=== PATIENT | male | born 1985 | race Caucasian/White ===

== ENCOUNTER 2018-07-23 14:23 | Inpatient (IN) | payer BC, OTHER ==
[~2018-07-23] VITALS: Ht 182.9 cm; Wt 79.4 kg
--- NOTE | 2018-07-23 15:20 | NUR ---
PRE ASSESSMENT: A 33 yr old male in intake presents with flushed face and bloodshot eyes. He is odorous of ETOH. His gait is steady. He reports allergy to shellfish. he denies Sz. Hx. He denies S/I and H/I. He reports drinking 2 bottles (1500 ml) of wine daily in this pattern since February. He drank 4 (30 ml) shots on plane today. Last drank about noon today [place] time. He did 5 days in detox back in November and left AMA and did IOP and stayed sober for 2.5 months. He brought Prilosec OTC and contact solution. Will assess on unit.` Addendum: 07/23/18 at 1637 by HUE STANTON RN CORRECTION : Pt brought Carli not Prilosec to facility. He does not take Prilosec . He takes Carli for allergies to Pollen.
[2018-07-23] MEDS ORDERED: LORAZEPAM 2 MG/1 ML VIAL IM PRN (15:45)
[2018-07-23] MEDS: FOLIC ACID 1 MG TABLET PO SCH (15:45)
[2018-07-23] MEDS ORDERED: MAGNESIUM HYDROXIDE 30 ML LIQUID UDC PO PRN (15:45)
[2018-07-23] MEDS ORDERED: LORAZEPAM 1 MG TABLET PO PRN (15:45)
[2018-07-23] MEDS ORDERED: THIAMINE HCL 200 MG/2 ML VIAL IM ONE (15:45)
[2018-07-23] MEDS: MULTIVITAMINS,THERAPEUTIC TABLET PO SCH (15:45)
[2018-07-23] MEDS ORDERED: ONDANSETRON 4 MG/2 ML VIAL IM PRN (15:45)
[2018-07-23] MEDS: THIAMINE HCL 100 MG TABLET PO SCH (15:45)
[2018-07-23] MEDS ORDERED: ONDANSETRON ODT 4 MG TAB.RAPDIS SL PRN (15:45)
[2018-07-23] MEDS ORDERED: LOPERAMIDE HCL 2 MG CAPSULE PO PRN ×2 (15:45)
[2018-07-23] MEDS ORDERED: MIRALAX 17 GM POWD.PACK PO PRN (15:45)
[2018-07-23 16:10] LABS: *AMPHETAMINE, URINE NEGATIVE (NEGATIVE); *BARBITURATE, URINE NEGATIVE (NEGATIVE); *CANNABINOID, URINE NEGATIVE (NEGATIVE); *COCCAINE, URINE NEGATIVE (NEGATIVE); *OPIATE, URINE NEGATIVE (NEGATIVE); *PHENCYCLIDINE SCREEN,URINE NEGATIVE (NEGATIVE)
[2018-07-23] MEDS: IBUPROFEN 600 MG TABLET PO PRN (16:12)
[2018-07-23] MEDS ORDERED: AZITHROMYCIN 250 MG TABLET PO ONE (16:45)
[2018-07-23] MEDS ORDERED: FEXO180T94 PO (16:45)
[2018-07-23] MEDS ORDERED: CEFTRIAXONE 1 G VIAL IM SCH (16:45)
[2018-07-23 16:48] LABS: BASOPHILS % (AUTO) 0.9 % (0.0-2.0); EOSINOPHILS % (AUTO) 0.4 % (0.0-7.0); HEMATOCRIT 41.6 % (36.7-47.1); HEMOGLOBIN 14.6 g/dL (12.5-16.3); LYMPHOCYTES # (AUTO) 1.6 K/uL (20.0-40.0); LYMPHOCYTES % (AUTO) 29.9 % (20.5-51.5); MEAN CORPUSCULAR HEMOGLOBIN 32.9 uug (23.8-33.4); MEAN CORPUSCULAR HGB CONC 35 g/dL (32.5-36.3); MEAN CORPUSCULAR VOLUME 93.5 fL (73.0-96.2); MONOCYTES # (AUTO) 0.4 K/uL (2.0-10.0); MONOCYTES % (AUTO) 7.8 % (0.0-11.0); NEUTROPHILS # (AUTO) 3.3 K/uL (1.8-8.9); PLATELET COUNT (AUTO) 142 K/uL (152-348); RED BLOOD CELL COUNT(AUTO) 4.44 MIL/uL (4.06-5.63); WHITE BLOOD COUNT (AUTO) 5.4 K/uL (3.6-10.2)
--- NOTE | 2018-07-23 17:01 | NUR ---
ADMISSION: Pt admitted to [facility] for medically supervised withdrawal of ETOH. He presents with flushed face and is odorous of Alcohol. He is mildly intoxicated. He states he drank on the plane ride here today. He states he cannot stop on his own as he gets too shaky with nausea,anxiety and develops chest pain when he tries to stop. He states he has been through a recent break up of a long relationship and legal issues in the recent past which has added to his reasons to drink. He was at [facility] for 5 days in November 2017 and left AMA. He reports going to IOP ( [facility])) after detox and staying sober for 2.5 months which was his longest period of sobriety. He reports the inability to cope with feelings and emotional discomfort led to his relapses in February 2018. He states he moved in with his partner in a new town in [facility]. and he felt very lonely. He reports loneliness was also a big part of his relapsing. He states he is sick and tired of living like this and he has a new niece and his sister has a baby on the way which motivates him to want to stop drinking and states I cannot do it on my own. BP 130/91 P 110 R 18 O2sat 98% ETOH USE : He reports drinking 2 bottles (1500 ml) of wine daily in this pattern since February. He drank 4 (30 ml) shots on plane today. Last drank about noon today [place]. He did 5 days in detox back in November and left AMA and did IOP and stayed sober for 2.5 months. He states he occasionally blacks out when he drinks too much and has a bruise on his R lower left from falling when drunk. He was on a 5150 hold in May when he was asked by a police radio dispatcher if he wanted to hurt himself. He replied "No" but stated he wouldn't mind going to sleep and not waking up. he was then put on a 72 hour hold. He reports seasonal allergies and brought Carli with him to facility. He denies Sz. hx. He reports PCP is Dr. Abi Dimas in [place]. he lives with his parents now and does real estate for work. He presents with sad mood and congruent affect,. He is reporting chest pain on unit 4/10 and states it is a dull pain. MD notified EKG ordered and normal results noted. Pt was given IM Thiamine as ordered and PRN Motrin for pain. He states he just wants to lay down. Md assessed Pt. Oriented Pt. to staff and unit. He states he would just like to lay down. Encouraged increased fluids. Will provide safe and supportive environment.
[2018-07-23 17:02] LABS: BILIRUBIN,TOTAL 0.4 mg/dL (0.2-1.0); MAGNESIUM 1.9 mg/dL (1.8-2.4); POTASSIUM 3.7 mmol/L (3.5-5.1); TOTAL PROTEIN, SERUM 7.3 g/dL (6.4-8.2)
[2018-07-23 17:09] LABS: THYROID STIMULATING HORMONE 1.563 mIU/mL (0.358-3.740)
--- NOTE | 2018-07-23 17:32 | NUR ---
Pt states the Motrin was effective and he denies chest pain at this time. pain 0/10 on scale.
[2018-07-23] MEDS: LORAZEPAM 1 MG TABLET PO PRN (18:18)
--- NOTE | 2018-07-23 18:20 | NUR ---
LANIEWA 13 Pt c/o mild nausea, anxiety,restlessness and feels like he is starting to crawl out of his skin. PRN Ativan 1 mg PO PRN given to manage s/s of w/d. Will monitor effectiveness of med.
--- NOTE | 2018-07-23 18:55 | NUR ---
Pt states Ativan was effective. CIWA 10.
--- NOTE | 2018-07-23 18:56 | NUR ---
END OF SHIFT: Pt newly admitted and resting in bed at this time. Bed locked and low. Call cisneros in reach. Will pass shift report to oncoming night nurse.
--- NOTE | 2018-07-23 19:30 | NUR ---
START OF SHIFT Pt is a 33 y/o male admitted today for medically supervised withdrawal from ETOH.Pt received sleeping in bed in his room;breathing is even and non labored,no s/s of distress noted.Last CIWA was 10. PRN Ativan 1 mg po was given and was effective.Pt has hx of anxiety and depression and is on PRN medications. All safety measures in place. Bed is locked in the lowest position, side rails up x2, and call light within reach. Will continue to monitor for w/d symptoms when awake.
[2018-07-23 20:00] VITALS: BP 128/85
--- NOTE | 2018-07-23 20:00 | NUR ---
CIWA DEFERRED Pt is sleeping comfortable in bed,no s/s of distress noted.CIWA deferred d/t Pt being asleep.
[2018-07-24] VITALS: BP 138/95
--- NOTE | 2018-07-24 | NUR ---
CIWA = 11 Pt is feeling anxious,c/o hot and cold sweats,headache,body ache,mild nausea with no vomiting.Will medicate and monitor for safety.
[2018-07-24] MEDS: IBUPROFEN 600 MG TABLET PO PRN ×3 (00:19→20:55)
[2018-07-24] MEDS: LORAZEPAM 1 MG TABLET PO PRN (00:19)
[2018-07-24] MEDS: CLONIDINE HCL 0.1 MG TABLET PO PRN (00:20)
--- NOTE | 2018-07-24 00:20 | NUR ---
PRN MEDS PRN ATIVAN 1 MG PO GIVEN FOR CIWA 11,MOTRIN 600 MG PO GIVEN FOR ACHES AND PAIN 5/10 AND CLONIDINE 0.1 MG PO GIVEN FOR HOT AND COLD FLASHES.WILL MONITOR FOR EFFECTIVENESS.
--- NOTE | 2018-07-24 01:20 | NUR ---
PRN F/U PRN meds ar effective in controlling symptoms; pt is resting in bed with eyes closed,no s/s of distress noted,will continue to monitor.
[2018-07-24 04:00] VITALS: BP 124/83
--- NOTE | 2018-07-24 04:00 | NUR ---
CIWA DEFERRED Pt is sleeping comfortable in bed,no s/s of distress noted.CIWA deferred d/t Pt being asleep.
--- NOTE | 2018-07-24 06:56 | NUR ---
END OF SHIFT Pt is a 33 y/o male admitted for medically supervised withdrawal from ETOH.Pt was received sleeping in bed in his room;breathing is even and non labored,no s/s of distress noted.He slept most of night.Last CIWA was 11 at midnight. PRN Ativan 1 mg po, Motrin 600 mg po and Clonidine 0.1 mg po were given and were effective.Pt slept 10 hours,fluid intake was 1151 ml, voided x 2, no BM reported. All safety measures in place. Bed is locked in the lowest position, side rails up x2, and call light within reach. Will continue to monitor.
--- NOTE | 2018-07-24 08:00 | NUR ---
start of shift note: [facility]/dependence. pt at this time is awake and asking to shower. pt verbalized I'm on [place] time so that's why Im up so early. pt appears anxious and flushed. pt with complaints of numbness from left arm to chest area, verbalizes it not pain but it happens when he is in withdrawal and its actually getting better. will continue to monitor pt for any changes
[2018-07-24] MEDS ORDERED: TUBERCULIN,PURIF.PROT.DERIV. 5 TU/0.1 ML TEST ID ONE (09:00)
[2018-07-24] MEDS: MULTIVITAMINS,THERAPEUTIC TABLET PO SCH (09:33)
[2018-07-24] MEDS: THIAMINE HCL 100 MG TABLET PO SCH (09:33)
[2018-07-24] MEDS: FOLIC ACID 1 MG TABLET PO SCH (09:33)
--- NOTE | 2018-07-24 09:34 | NUR ---
PRN ADMINISTRATION: pt with ciwa of 16 prn 2 mg ativan was administered with motrin for headache pain 06/23.
[2018-07-24 11:04] VITALS: BP 126/88
[2018-07-24] MEDS ORDERED: 4 DAY TAPER OF LORAZEPAM -SERENITY PROTOCOL PO PRN (11:15)
--- NOTE | 2018-07-24 12:49 | NUR ---
Therapist prompted client to attend group therapy.
--- NOTE | 2018-07-24 13:00 | NUR ---
ciwa assessment:13 pt is flushed and tremulous with complaints of a mild headache
[2018-07-24 13:26] VITALS: BP 139/96
[2018-07-24] MEDS: LORAZEPAM 1 MG TABLET PO SCH ×2 (14:26→20:55)
[2018-07-24 16:58] VITALS: BP 137/95
--- NOTE | 2018-07-24 18:49 | NUR ---
end of shift note: pt is admitted to [facility] for ETOH withdrawal/dependence, pt last ciwa is 13, pt is tolerating ativan taper well without a/r to taper pt refused TB skin test. Dr. Wu ordered a 4 day ativan taper. pt appears flushed and midly anxious. pt is polite and received PRN motrin for a headache. will endorse pt to assistant shift supervisor nurse.
--- NOTE | 2018-07-24 19:30 | NUR ---
START OF SHIFT Pt is a 33 y/o male admitted for medically supervised withdrawal from ETOH.Pt received i in his room; A/A/O X 4; appears flushed and mildly anxious,c/o mild headache.Last CIWA was 13.Pt started on Ativan taper and is tolerating well. PRN Ativan 2 mg po and Motrin were given and were effective.Pt has hx of anxiety and depression . All safety measures in place. Bed is locked in the lowest position, side rails up x2, and call light within reach. Will continue to monitor .
[2018-07-24 20:00] VITALS: BP 122/85
[2018-07-24] MEDS: diphenhydrAMINE 50 MG CAPSULE PO PRN (20:55)
--- NOTE | 2018-07-24 20:55 | NUR ---
PRN MEDS Pt medicated with routine Ativan 2 mg PO.Pt is also c/o headache 5/10 and insomnia. PRN meds Motrin and Benadryl given as ordered for c/o headache and insomnia; will continue to monitor.
--- NOTE | 2018-07-24 22:00 | NUR ---
PRN F/U PRN meds are effective in controlling symptoms; Pt is resting in bed with eyes closed,no s/s of distress noted,will continue to monitor.
--- NOTE | 2018-07-25 | NUR ---
WENDI DEFERRED D/T PT BEING ASLEEP.
[2018-07-25 04:00] VITALS: BP 124/88
--- NOTE | 2018-07-25 04:00 | NUR ---
CIWA DEFERRED Pt is sleeping comfortable in bed,no s/s of distress noted.CIWA deferred d/t Pt being asleep.
--- NOTE | 2018-07-25 06:48 | NUR ---
END OF SHIFT Pt is a 33 y/o male admitted for medically supervised withdrawal from ETOH.Pt is a/o x 4.He slept most of night.Last CIWA was 9 at 1999.Pt stated that Ativan is helping him with the withdrawal symptoms. PRN Motrin 600 mg po and Benadryl 50 mg po were given and were effective.Pt slept 8 hours,fluid intake was 500 ml, voided x 2, no BM reported. All safety measures in place. Bed is locked in the lowest position, side rails up x2, and call light within reach. Will continue to monitor.
[2018-07-25 07:06] LABS: HEPATITIS B SURFACE AG Negative (Negative)
[2018-07-25 08:00] VITALS: BP 133/86
--- NOTE | 2018-07-25 08:08 | NUR ---
START OF SHIFT: Received Pt A/O X 4. He presents with anxious mood and congruent affect. He reports anxiety, sweats, restlessness,mild depression and H/A 5/10 on pain scale. CIWA 11. Ativan taper in progress to manage s/s of w/d. PRN Motrin given for H/A. Encouraged increased fluids to assist in facilitating detox process.Encouraged group attendance to improve coping skills.Will continue to monitor and manage s/s of w/d.
[2018-07-25] MEDS: LORAZEPAM 1 MG TABLET PO SCH ×4 (08:55→20:52)
[2018-07-25] MEDS: THIAMINE HCL 100 MG TABLET PO SCH (08:55)
[2018-07-25] MEDS: IBUPROFEN 600 MG TABLET PO PRN (08:55)
[2018-07-25] MEDS: FOLIC ACID 1 MG TABLET PO SCH (08:55)
[2018-07-25] MEDS: MULTIVITAMINS,THERAPEUTIC TABLET PO SCH (08:55)
--- NOTE | 2018-07-25 09:10 | NUR ---
PRN Motrin effective as Pt reports H/A 2/10 on scale.
--- NOTE | 2018-07-25 10:23 | NUR ---
Therapist prompted client to attend group therapy.
[2018-07-25 12:00] VITALS: BP 154/100
--- NOTE | 2018-07-25 12:00 | NUR ---
CIWA 10 He presents anxious with flushed face,he reports intermittent sweats. he states he feels anxious and restless.
[2018-07-25] MEDS: CLONIDINE HCL 0.1 MG TABLET PO PRN ×2 (12:28→20:52)
--- NOTE | 2018-07-25 12:44 | NUR ---
PRN Clonidine 0.1 mg PO given for BP 154/100 P 76. He is asymptomatic. Will monitor effectiveness of PRN med.
[2018-07-25 13:00] VITALS: BP 131/88
--- NOTE | 2018-07-25 13:44 | NUR ---
PRN Clonidine effective. BP 131/88 P 81 Will continue to monitor and offer support.
[2018-07-25 16:00] VITALS: BP 137/94
--- NOTE | 2018-07-25 18:35 | NUR ---
END OF SHIFT: Pt continues on Ativan taper to manage s/s of w/d which include flushed face,anxiety,restlessness ,intermittent sweats, H/A and irritability. Last CIWA 9 . PRN Motrin given his am for H/A and effective. PRN Clonidine given this afternoon for slightly elevated BP which was also effective. He was compliant with group attendance and increased fluids as encouraged. [facility].
[2018-07-25 20:00] VITALS: BP 142/98
--- NOTE | 2018-07-25 20:00 | NUR ---
Start of Shift Note Received a 33 y/o male px, admitted for medically supervised withdrawal from ETOH. Px is placed on 4 day Ativan taper started yesterday, 07/25/2018. Last reported CIWA 9 by AM shift nurse. During the rounds at 2000, px is awake inside his room standing. He appears anxious and depressed. He has flushed face. Px states that his anxiety is 8/10. No more complaints made. Bed on lowest position, bed rails up 2x and call light within reach. Well continue to monitor.
--- NOTE | 2018-07-25 20:00 | NUR ---
CIWA 10 Upon assessment, He appears anxious and depressed. He has flushed face. Px states that his anxiety is 8/10. will continue to monitor
--- NOTE | 2018-07-25 20:52 | NUR ---
PRN Clonidine Px received Clonidine 0.1 mg PO for anxiety. To reassess after an hour
--- NOTE | 2018-07-25 21:52 | NUR ---
PRN Clonidine reassessment Px also received Valium an hour ago. Px stated that his anxiety improved a little.
--- NOTE | 2018-07-25 21:52 | NUR ---
Ativan Reassessment CIWA 9. Px stated that his anxiety improved just a bit. He wanted to get pill to help him sleep.
[2018-07-25] MEDS: diphenhydrAMINE 50 MG CAPSULE PO PRN (21:57)
[2018-07-25] MEDS: HYDROXYZINE PAMOATE 25 MG CAPSULE PO PRN (21:57)
--- NOTE | 2018-07-25 21:57 | NUR ---
PRN medications Px received Vistaril 25 mg PO and Benadryl 50 mg PO for insomnia. will continue to monitor
--- NOTE | 2018-07-25 23:00 | NUR ---
ANDRZEJ Ruelas and Kenji Velasquez is already asleep at this moment. will continue to monitor Addendum: 07/26/18 at 0649 by PATRICIA BRADSHAW RN This is reassessment
[2018-07-26] VITALS: BP 130/79
[2018-07-26 04:00] VITALS: BP 128/77
--- NOTE | 2018-07-26 04:00 | NUR ---
CIWA deferred CIWA deferred at 0000 and 0400 due the px is asleep, to assess if the px is awake per doctor's order. will continue to monitor
--- NOTE | 2018-07-26 07:05 | NUR ---
End of Shift Note At 2051, px received Clonidine 0.1 mg PO for anxiety. It was effective given with PRN Ativan. At 2156, px received Benadryl 50 mg PO and Vistaril 25 mg PO for insomnia. They were effective. Oral intake is 800 ml, 2x, No BM. Px slept for 8 hours. Last CIWA 9. Bed on lowest position, bed rails up 2x and call light within reach. Well continue to monitor. Px endorsed to AM shift nurse.
[2018-07-26 08:00] VITALS: BP 115/77
--- NOTE | 2018-07-26 08:05 | NUR ---
START OF SHIFT: Received Pt A/O X 4. He presents with anxious mood and congruent affect. He reports anxiety, sweats, restlessness and mild depression . CIWA 7 Ativan taper in progress to manage s/s of w/d. Encouraged increased fluids to assist in facilitating detox process.Encouraged group attendance to improve coping skills.Will continue to monitor and manage s/s of w/d.
[2018-07-26] MEDS: FOLIC ACID 1 MG TABLET PO SCH (08:31)
[2018-07-26] MEDS: LORAZEPAM 1 MG TABLET PO SCH ×3 (08:31→21:07)
[2018-07-26] MEDS: THIAMINE HCL 100 MG TABLET PO SCH (08:31)
[2018-07-26] MEDS: MULTIVITAMINS,THERAPEUTIC TABLET PO SCH (08:31)
[2018-07-26 12:00] VITALS: BP 129/93
--- NOTE | 2018-07-26 12:05 | NUR ---
Noon CIWA 8 He reports anxiety ,restlessness and intermittent sweats.
--- NOTE | 2018-07-26 13:42 | NUR ---
Therapist prompted client to attend all group therapy sessions.
[2018-07-26 16:00] VITALS: BP 148/97
--- NOTE | 2018-07-26 18:23 | NUR ---
END OF SHIFT: Pt continues on Ativan taper to manage s/s of w/d which include flushed face,anxiety,restlessness and intermittent sweats. Last CIWA 8 He states the detox meds are effective. He was compliant with group attendance. He reports a good appetite. Will pass shift report to oncoming night nurse.
--- NOTE | 2018-07-26 18:23 | NUR ---
START OF SHIFT NOTE: Endorsed patient, 33 years old male, admitted for Alcohol withdrawal, continues ordered 4 day Ativan taper, which tolerated well. Withdrawal symptoms will be closely monitoring. Patient remains compliant with treatment, medications, and diet regimen. Patient is alert and oriented x4, cooperative, with stable gait, clear soft speech. Patient reports allergy to Iodine and Shellfish, is on Full Code, Regular diet, Fall and Seizures precautions. Patient denies history of seizures. Last CIWA= 8 at 1600. Throughout the day patient presented with mild withdrawal symptoms such as anxiety, agitation, irritability, nervousness, tremors that can be felt not observe, restlessness, and fatigue. No PRN medications was administered during day shift, per day shift nurse report. Patient was encouraged to fluids intake as tolerated, and to attend groups activities. Safe and calm environment provided. All needs met. Safety measures in place: Call light within reach, bed locked in lowest position, padded bed rails up bilaterally. Patient endorsed by outgoing day shift nurse. Report received. Will be monitoring closely.
[2018-07-26 20:00] VITALS: BP 133/91
--- NOTE | 2018-07-26 20:00 | NUR ---
CIWA ASSESSMENT CIWA=9 at 1999. The patient appears sad and worried. Mood anxious and flat affect. The patient presented with following withdrawal symptoms such as anxiety, agitation, depression, irritability, nervousness, barely sweating, tremors that can be felt not observe, restlessness, and fatigue. Scheduled medications will be administrated as ordered. Encouraged to intake fluids as tolerated. Safe and calm environment provided. All needs met. Safety measures: Call light within reach, bed locked in lowest position, padded bed rails up x2. Will continue to monitor closely.
[2018-07-26] MEDS: diphenhydrAMINE 50 MG CAPSULE PO PRN (21:07)
--- NOTE | 2018-07-26 21:07 | NUR ---
PRN BENADRYL 50 MG 1TABLET PO ADMINISTRATION Patient c/o insomnia and asked aid. PRN Benadryl 50 mg 1 tablet was administered as ordered with full glass of water at 2107. Patient tolerated well. Safe and calm environment provided. All needs met. Safety measures in place: Call light within reach, bed locked in lowest position, padded bed rails up bilaterally. Will continue monitoring closely.
--- NOTE | 2018-07-26 22:07 | NUR ---
PRN RE-ASSESSMENT Patient said, "I can't sleeping, please, give me something for anxiety". PRN Benadryl 50 mg PO administered for insomnia at 2106 was ineffective. Safe and calm environment provided. All needs met. Safety measures in place: Call light within reach, bed locked in lowest position, padded bed rails up bilaterally. Will be continue monitoring closely.
[2018-07-26] MEDS: HYDROXYZINE PAMOATE 25 MG CAPSULE PO PRN (22:17)
[2018-07-26] MEDS: CLONIDINE HCL 0.1 MG TABLET PO PRN (22:18)
--- NOTE | 2018-07-26 22:18 | NUR ---
PRN VISTARIL 25 MG 1 CAPSULE PO, PRN CLONIDINE 0.1 MG 1TABLET PO ADMINISTRATION Patient c/o increased anxiety, and asked aid. PRN Vistaril 25 mg 1 capsule PO administered for anxiety at 22 17, and PRN Clonidine 0.1 mg 1 tablet PO (BP 133/91) administered for agitation at 2218, as ordered with full glass of water. Patient tolerated well. Safe and calm environment provided. All needs met. Safety measures in place: Call light within reach, bed locked in lowest position, padded bed rails up bilaterally. Will continue monitoring closely.
--- NOTE | 2018-07-26 23:18 | NUR ---
PRN RE-ASSESSMENT Patient is sleeping on his side. Respirations are even and unlabored. RR: 14. PRN Vistaril 25 mg PO administered for anxiety at 2217, and PRN Clonidine 0.1 mg PO administered for agitation at 2218 were effective. Safe and calm environment provided. All needs met. Safety measures in place: Call light within reach, bed locked in lowest position, padded bed rails up bilaterally. Will continue monitoring closely.
[2018-07-27] VITALS: BP 108/76
--- NOTE | 2018-07-27 | NUR ---
CIWA ASSESSMENT CIWA=9 at 0000 The patient noted with following withdrawal symptoms such as anxiety, agitation, depression, irritability, nervousness, barely sweating, tremors, restlessness, and fatigue. Encouraged to intake fluids as tolerated. Safe and calm environment provided. All needs met. Safety measures: Call light within reach, bed locked in lowest position, padded bed rails up x2. Will continue to monitor closely.
[2018-07-27 04:00] VITALS: BP 103/73
--- NOTE | 2018-07-27 04:00 | NUR ---
CIWA ASSESSMENT CIWA=9 at 0400: Patient experienced anxiety, agitation, , nervousness, sweating, clammy skin, tremors that can be felt, not observe, restlessness, and fatigue. Encouraged to intake fluids as tolerated. Safe and calm environment provided. All needs met. Safety measures: Call light within reach, bed locked in lowest position, padded bed rails up x2. Will continue to monitor closely.
--- NOTE | 2018-07-27 07:20 | NUR ---
END OF SHIFT NOTE: Patient is alert and oriented x4, cooperative, with stable gait, clear soft speech. Patient continues and tolerated well with 4 day Ativan taper, ordered for Alcohol withdrawal. Patient remains compliant with treatment, medications, and diet regimen. CIWA= 9 at 2000, CIWA= 9 at 0000. The most recent CIWA=9 at 0400. Withdrawal symptoms was closely monitored. Patient presented with anxiety, agitation, depression, irritability, nervousness, sweating, bilateral tremors that can be felt, not observe, restlessness, and fatigue. PRN Benadryl 50 mg 1 tablet was administered for insomnia at 2106, PRN Vistaril 25 mg PO administered for anxiety at 2216, and PRN Clonidine 0.1 mg PO administered for agitation at 2217, and were effective. Patient slept for 9 hours, intake 1,500 ml, output: voided x2. Encouraged to fluids intake as tolerated. Encouraged to attend groups activities. Safe and calm environment provided. All needs met. Safety measures in place: Call light within reach, bed locked in lowest position, padded bed rails up bilaterally. Patient endorsed to day shift nurse.
--- NOTE | 2018-07-27 07:35 | NUR ---
START OF SHIFT Rcvd endorse from ongoing nurse, client is pacing in his room, he presents with flushed face, avoidant gaze, tremors, clammy skin, anxious mood, restlessness, and irritability. Client stated, "I feel exremely anxious, feel a knot on my stomach, nausea, and restless legs, that's why I have to keep moving." Last of 4 day Ativan taper, last CIWA 9 @ 0400. PRN Vistaril 25mg PO for anxiety, Clonidine 0.1mg PO for agitation, and Benadryl 50mg PO for insomnia, client slept 9 hrs. Encourage client to attend group therapy to learn skills to maintain sober. Seizure precautions in place. Call light within reach.
[2018-07-27 08:16] LABS: BASOPHILS % (AUTO) 0.6 % (0.0-2.0); EOSINOPHILS # (AUTO) 0.1 K/uL (0.0-0.7); EOSINOPHILS % (AUTO) 1.1 % (0.0-7.0); HEMATOCRIT 43.6 % (36.7-47.1); HEMOGLOBIN 15.3 g/dL (12.5-16.3); LYMPHOCYTES # (AUTO) 1.5 K/uL (20.0-40.0); LYMPHOCYTES % (AUTO) 27.3 % (20.5-51.5); MEAN CORPUSCULAR HEMOGLOBIN 33.1 uug (23.8-33.4); MEAN CORPUSCULAR HGB CONC 35 g/dL (32.5-36.3); MEAN CORPUSCULAR VOLUME 94.3 fL (73.0-96.2); MONOCYTES # (AUTO) 0.5 K/uL (2.0-10.0); MONOCYTES % (AUTO) 8.8 % (0.0-11.0); NEUTROPHILS # (AUTO) 3.5 K/uL (1.8-8.9); NEUTROPHILS % (AUTO) 62.2 % (38.5-71.5); PLATELET COUNT (AUTO) 117 K/uL (152-348); RED BLOOD CELL COUNT(AUTO) 4.62 MIL/uL (4.06-5.63); WHITE BLOOD COUNT (AUTO) 5.6 K/uL (3.6-10.2)
[2018-07-27 08:27] VITALS: BP 112/72
[2018-07-27 08:32] LABS: BILIRUBIN,TOTAL 0.7 mg/dL (0.2-1.0); CREATININE 1.1 mg/dL (0.6-1.3); POTASSIUM 4.2 mmol/L (3.5-5.1); TOTAL PROTEIN, SERUM 7.2 g/dL (6.4-8.2)
[2018-07-27] MEDS: MULTIVITAMINS,THERAPEUTIC TABLET PO SCH (09:14)
[2018-07-27] MEDS: FOLIC ACID 1 MG TABLET PO SCH (09:14)
[2018-07-27] MEDS: THIAMINE HCL 100 MG TABLET PO SCH (09:14)
[2018-07-27] MEDS: LORAZEPAM 1 MG TABLET PO SCH ×2 (09:14→20:42)
--- NOTE | 2018-07-27 09:14 | NUR ---
CIWA 14 Client is in room, sitting at the edge of bed, unable to stop moving his feet, he appears with flushed face, avoidant gaze, tremulous voice. he presents with anxious mood, flat affect, tremors, and clammy skin. Client reports nausea, stomach cramps, poor appetite, shaky,sweaty, feeling rather sad, and fatigued. Schedule Ativan 1mg PO administered. Encourage client to attend group therapy to learn skills to maintain sober. Call light within reach.
--- NOTE | 2018-07-27 10:00 | NUR ---
MD Wu notified of Plt count 117. Client denies any blood noted in urine, no bruises on body. Encourage client to notify nursing staff for ant change in condition.
[2018-07-27 12:27] VITALS: BP 120/81
--- NOTE | 2018-07-27 12:30 | NUR ---
CIWA 12 Client appears anxious and depressed, noted with flushed face. Client declines PRN medication to help manage withdrawal symptoms. Will continue to monitor. Call light within reach.
--- NOTE | 2018-07-27 12:50 | NUR ---
Therapist prompted client to attend all group therapy sessions.
--- NOTE | 2018-07-27 16:23 | NUR ---
CIWA 13 Client is back in room from group therapy, he stated, "I feel pretty anxious, those therapies get intense and emotional." Client reports nausea, chills, anxiety, agitation, and restless legs. Client decline PRN medication for anxiety at this time. Call light within reach.
[2018-07-27 16:55] VITALS: BP_SYST 123; BP_SYST 138; BP_DIAS 75; BP_DIAS 90
--- NOTE | 2018-07-27 19:09 | NUR ---
END OF SHIFT Endorse client to incoming nurse, client is in group therapy, a/o x 4. Client continues to present with anxiety, agitation, tremors, flushed face, clammy skin, difficulty concentrating, nausea, abdominal cramps, restless legs, poor appetite, headache, and fatigue. Last CIWA 13 @ 1600. Last of 4 day Ativan taper. Adequate PO fluid intake 3302mL, void x 4. Consumes 75% of meals. Call light within reach.
--- NOTE | 2018-07-27 19:09 | NUR ---
START OF SHIFT NOTE Endorsed patient is alert and oriented x4: place, time person, and situation, presented for alcohol withdrawal, tolerated well with ordered 4 day Ativan taper, today is last day. Patient remains compliant with treatment, medications, and diet regime. Patient is cooperative with staff and peers, attended group activities, increased ADLs. VSWNL. Last CIWA=13 at 1623. Patient experienced moderate withdrawal symptoms such as anxiety, agitation, nervousness, mild nausea, w/o vomiting, not visible bilateral tremors that can be felt, sweating, restlessness, and fatigue. Withdrawal symptoms will be closely monitoring. No PRN medications administered during day shift, per day shift nurse report. Encouraged to fluids intake as tolerated. Encouraged to attend group activities. Safe and calm environment provided. All needs met. Safety measures in place: Call light within reach, bed is locked in lowest position, padded bed rails up x2. Report received from outgoing day shift nurse. Will continue to monitor closely.
[2018-07-27 20:00] VITALS: BP 129/93
--- NOTE | 2018-07-27 20:00 | NUR ---
CIWA ASSESSMENT CIWA=11 at 2000. Patient experienced anxiety, agitation, irritability, nervousness, with bilateral tremors, that can be felt not observe, c/o restlessness, and fatigue. Scheduled medications will be administrated as ordered. Encouraged to intake fluids as tolerated. Safe and calm environment provided. All needs met. Safety measures: Call light within reach, bed locked in lowest position, padded bed rails up x2. Will continue to monitor closely.
[2018-07-27] MEDS: diphenhydrAMINE 50 MG CAPSULE PO PRN (20:42)
--- NOTE | 2018-07-27 20:42 | NUR ---
PRN BENADRYL 50 MG 1TABLET PO ADMINISTRATION PRN Benadryl 50 mg 1 tablet was administered for insomnia at 2041. Patient tolerated well. Safe and calm environment provided. All needs met. Safety measures in place: Call light within reach, bed locked in lowest position, padded bed rails up x2. Will to reassess in one hour.
--- NOTE | 2018-07-27 21:42 | NUR ---
PRN RE-ASSESSMENT Patient is not sleeping, noted anxious and agitated. PRN Benadryl 50 mg PO administered for insomnia at 2041 was ineffective. PRN medications for anxiety and agitation will be administrated. Safe and calm environment provided. All needs met. Safety measures in place: Call light within reach, bed locked in lowest position, padded bed rails up bilaterally. Will be continue monitoring closely.
[2018-07-27] MEDS: CLONIDINE HCL 0.1 MG TABLET PO PRN (22:14)
[2018-07-27] MEDS: HYDROXYZINE PAMOATE 25 MG CAPSULE PO PRN (22:19)
--- NOTE | 2018-07-27 22:19 | NUR ---
PRN CLONIDINE 0.1 MG 1TABLET PO, PRN VISTARIL 25 MG 1 CAPSULE PO ADMINISTRATION PRN Clonidine 0.1 mg 1 tablet PO administered for agitation at 221, and PRN Vistaril 25 mg 1 capsule PO administered for anxiety at 221. Patient tolerated well. Safe and calm environment provided. All needs met. Safety measures in place: Call light within reach, bed locked in lowest position, padded bed rails up bilaterally. Will continue monitoring closely.
--- NOTE | 2018-07-27 23:18 | NUR ---
PRN RE-ASSESSMENT PRN Clonidine 0.1 mg 1 tablet PO administered for agitation at 2216, and PRN Vistaril 25 mg 1 capsule PO administered for anxiety at 2218 were effective. Patient is sleeping. Respirations are even and unlabored. RR: 15. Safe and calm environment provided. All needs met. Safety measures in place: Call light within reach, bed locked in lowest position, padded bed rails up x2. Will continue to monitor closely.
[2018-07-28] VITALS: BP 106/71
--- NOTE | 2018-07-28 | NUR ---
CIWA ASSESSMENT CIWA=9 at 0000. Withdrawal symptoms was closely monitored. Patient experienced anxiety, agitation, irritability, nervousness, sweating, bilateral tremors that can be felt, not observe, and restlessness. Safe and calm environment provided. All needs met. Safety measures in place.
[2018-07-28 04:00] VITALS: BP 101/69
--- NOTE | 2018-07-28 04:00 | NUR ---
CIWA ASSESSMENT CIWA=10 at 0400. Patient presented with anxiety, agitation, nervousness, restlessness, sweating, flashed face, bilateral tremors, that can be felt not observe,and fatigue. Encouraged to express his feeling, and encouraged to fluids intake fluids, as tolerated. Safe and calm environment provided. All needs met. Safety measures in place. Will continue to monitor closely.
--- NOTE | 2018-07-28 07:17 | NUR ---
END OF SHIFT NOTE Patient is a 33 year old male, admitted for alcohol withdrawal, completed ordered 4 day Ativan taper, tolerated well. Patient remains compliant with medications. Withdrawal symptoms was closely monitoring. Patient is alert and oriented x4,cooperative. Initial CIWA=11 at 2000, CIWA=9 at 0000. The latest CIWA=10 at 0400. Patient presented with anxious mood and flat affect. During my shift he experienced anxiety, agitation, nervousness, irritability, mild nausea, bilateral tremors that can be felt, sweating, restlessness, and fatigue. PRN Benadryl 50 mg PO administered for insomnia at 2041 was ineffective. PRN Clonidine 0.1 mg 1 tablet PO administered for agitation at 2216, and PRN Vistaril 25 mg 1 capsule PO administered for anxiety at 2218 were effective. Patient slept for 7 hours, intake 1,355ml, output: voided x3. Encouraged to fluids intake as tolerated. Encouraged to attend groups activities. Safe and calm environment provided. All needs met. Safety measures in place: Call light within reach, bed locked in lowest position, padded bed rails up bilaterally. Patient endorsed to day shift nurse.
--- NOTE | 2018-07-28 07:27 | NUR ---
START OF SHIFT Endorse rcvd from ongoing nurse. Client is in room, he presents with flushed face, depresses mood, tremors felt not observed, and difficulty concentrating. Client reports nausea, chills, stomach cramps, and fatigue. Client completed 4 day Ativan taper. Last CIWA 10 @ 0400. PRN Clonidine 0.1mg PO for agitation, Vistaril 25mg PO for anxiety, Benadryl 50mg PO for insomnia, client slept 7 hrs. Encourage client to attend group therapy to learn skills to maintain sober. Seizure precautions in place. Bed in lowest/locked position. Call light within reach.
[2018-07-28 08:15] VITALS: BP 106/73
--- NOTE | 2018-07-28 08:48 | NUR ---
CIWA 5 Client presents with anxious mood, tremors felt, not observed, and flat affect. Client denies any nausea, vomiting or diarrhea, he reports feeling fatigue. Encourage client to notify staff with any change of condition, he verbalized understanding. call light within reach.
[2018-07-28] MEDS: THIAMINE HCL 100 MG TABLET PO SCH (09:00)
[2018-07-28] MEDS: FOLIC ACID 1 MG TABLET PO SCH (09:00)
[2018-07-28] MEDS: MULTIVITAMINS,THERAPEUTIC TABLET PO SCH (09:00)
[2018-07-28] MEDS: CLONIDINE HCL 0.1 MG TABLET PO PRN ×2 (09:13→20:21)
--- NOTE | 2018-07-28 09:13 | NUR ---
PRN Clonidine 0.1mg PO for agitation, Vistaril 25mg PO for anxiety administered. Client stated, "I am schedule to leave tomorrow, but I do not have a place yet, My insurance denied two treatments already and if they don't approve the last one, I would be going home, I'm very anxious about where I'm going to continue my treatment."Charge nurse made aware that client needs to speak to discharge staff. Call light within reach.
[2018-07-28] MEDS: HYDROXYZINE PAMOATE 25 MG CAPSULE PO PRN ×2 (09:14→20:21)
--- NOTE | 2018-07-28 09:41 | NUR ---
Endorse client to MANAGER CREDIT RISK for continuity of care, discuss all relevant information. MANAGER CREDIT RISK to reassess PRN medications.
--- NOTE | 2018-07-28 09:42 | NUR ---
ASSUMED CARE assumed care for patient, all pertinent information was discussed. Will reassess PRN medication, will continue to monitor closely.
--- NOTE | 2018-07-28 09:42 | NUR ---
CLONIDINE/VISTARIL REASSESSMENT Patient reports feeling less anxious, and feels calm now, discharge is aware of patients concern and will speak with patient today. Will continue to monitor.
[2018-07-28 12:30] VITALS: BP 117/76
--- NOTE | 2018-07-28 13:00 | NUR ---
CIWA ASSESSMENT Noted exhibiting the following s/sx of withdrawal: mild diaphoresis, anxiety, agitation, difficulty concentrating, emotional volatility, and increased emotional amplitude. Patient with last CIWA score of: 8. Will continue to monitor. Addendum: 07/28/18 at 1824 by AMBAR PARKER LVN clarification, ciwa score was: 7.
[2018-07-28] MEDS ORDERED: DIPH50CA37 PO (13:09)
[2018-07-28] MEDS ORDERED: HYDR-3895 PO (13:09)
[2018-07-28] MEDS ORDERED: CLON0.1T14 PO (13:09)
[2018-07-28] MEDS ORDERED: FEXO180T94 PO (14:46)
[2018-07-28 16:55] VITALS: BP 138/90
--- NOTE | 2018-07-28 17:00 | NUR ---
CIWA ASSESSMENT Still noted presenting with: anxiety, agitation, difficulty concentrating, mild diaphoresis,emotional volatility, and increased emotional amplitude. Patient with last CIWA score of: 8. Will continue to monitor. Addendum: 07/28/18 at 1824 by AMBAR PARKER LVN clarification: ciwa score was 7.
--- NOTE | 2018-07-28 18:51 | NUR ---
START OF SHIFT NOTE Patient is a 33 years old male endorsed by day shift nurse. Patient completed 4 day Ativan taper today, ordered for alcohol withdrawal, tolerated well. Under endorsement, patient resting in his room, and watching TV. Patient is alert and oriented x4, last CIWA=7 at 1655. Patient experienced mild withdrawal symptoms, such as anxiety, agitation, nervousness, tremors, that can be felt, not observe, fatigue, and restlessness, per day shift nurse report. PRN Clonidine 0.1 mg PO administered for agitation at 0913, and PRN Vistaril 25 mg PO administered for anxiety at 0914, and were effective. Patient remains compliant with treatment, medications, and diet regime. VSWNL. Encouraged to attend group activities. Encouraged to intake fluids, as tolerated. All needs met. Safe and calm environment provide. Safety measures in place. Report received from day shift nurse. Will continue to monitor closely..
--- NOTE | 2018-07-28 19:01 | NUR ---
END OF SHIFT Patient alert and oriented x4, noted anxious at times, with anxious affect/mood. Provided with non pharmacological interventions as needed. Encouraged patient to attend group therapies/sessions to learn new coping skills to prevent relapse. Patient completed taper discharge is pending. noted self motivated towards sobriety. Patient continues under close observation, last CIWA score of: 7, presenting with: tremors that can be felt but not seen, barely sweating, anxiety and agitation. Encouraged increase in PO fluid intake as tolerated. Received PRN: Clonidine/Vistaril during shift, medications were effective. Patient Encouraged patient to attend group therapies/sessions to learn new coping skills to prevent relapse, Denies SI/HI. Safety measures in place. Will continue to monitor. Patient was endorsed to shift leader nurse, all pertinent information was discussed.
[2018-07-28 20:00] VITALS: BP 139/88
--- NOTE | 2018-07-28 20:00 | NUR ---
CIWA ASSESSMENT CIWA=10 at 1999. Patient c/o increased anxiety, agitation, nervousness, sweating, bilateral tremors that can be felt, not observe, and restlessness. PRN Medications will be administered ,as ordered. Safe and calm environment provided. All needs met. Safety measures in place.
[2018-07-28] MEDS: diphenhydrAMINE 50 MG CAPSULE PO PRN (20:21)
--- NOTE | 2018-07-28 20:21 | NUR ---
PRN BENADRYL 50 MG 1TABLET PO , PRN CLONIDINE 0.1 MG 1TABLET PO, PRN VISTARIL 25 MG 1 CAPSULE PO ADMINISTRATION PRN Benadryl 50 mg 1 tablet was administered for insomnia at 2020, PRN Clonidine 0.1 mg 1 tablet PO administered for agitation at 2020, and PRN Vistaril 25 mg 1 capsule PO administered for anxiety at 2020. Patient tolerated well. Safe and calm environment provided. All needs met. Safety measures in place: Call light within reach, bed locked in lowest position, padded bed rails up bilaterally. Will continue monitoring closely.
--- NOTE | 2018-07-28 21:21 | NUR ---
PRN RE-ASSESSMENT Patient is sleeping. Respirations are even and unlabored. RR:14. PRN Benadryl 50 mg 1 tablet was administered for insomnia at 2020, PRN Clonidine 0.1 mg 1 tablet PO administered for agitation at 2020, and PRN Vistaril 25 mg 1 capsule PO administered for anxiety at 2020 were effective. . Safe and calm environment provided. All needs met. Safety measures in place: Call light within reach, bed locked in lowest position, padded bed rails up x2. Will continue to monitor closely.
--- NOTE | 2018-07-29 | NUR ---
VS REFUSED, CIWA DEFERRED Patient refused VS, CIWA deferred r/t patient sleeping, and will be assessed while patient will be awake. Safe and calm environment provided. All needs met. Safety measures in place: Call light within reach, bed locked in lowest position, padded bed rails up bilaterally. Will be monitoring closely.
[2018-07-29 04:00] VITALS: BP 107/74
--- NOTE | 2018-07-29 04:00 | NUR ---
CIWA=10 Patient experienced mild withdrawal symptoms, such as anxiety, agitation, nervousness, tremors, that can be felt, not observe, fatigue, and restlessness. Encouraged to intake fluids, as tolerated. All needs met. Safe and calm environment provide. Safety measures in place.
--- NOTE | 2018-07-29 05:32 | NUR ---
DISCHARGING NOTE: Patient, a 33 year old male, alert and oriented x4, VS: T:98'4, HR:80, BP:107/74, RR:18, [id number]:99%, Pain level:"0/10". Valuables and home medications given back to patient. Patient is in stable condition discharging to home at 0532.
== END 2018-07-29 05:32 | disposition home or self-care (01) | DRG 895 ==
LOC: SRC 14:23
PROVIDERS: ADMIT Family Medicine Addiction Medicine; ATTEND Family Medicine Addiction Medicine
PROC: HZ2ZZZZ Detoxification Services for Substance Abuse Treatment (ICD-10-PCS; principal; 2018-07-23)
PROC: HZ41ZZZ Group Counseling for Substance Abuse Treatment, Behavioral (ICD-10-PCS; 2018-07-24)
PROC: HZ31ZZZ Individual Counseling for Substance Abuse Treatment, Behavioral (ICD-10-PCS; 2018-07-25)
DX: F10.239 Alcohol dependence with withdrawal, unspecified (principal); F10.229 Alcohol dependence with intoxication, unspecified; Y90.6 Blood alcohol level of 120-199 mg/100 ml; F17.200 Nicotine dependence, unspecified, uncomplicated; D69.6 Thrombocytopenia, unspecified; F32.9 Major depressive disorder, single episode, unspecified; Z65.3 Problems related to other legal circumstances; R07.89 Other chest pain; F41.9 Anxiety disorder, unspecified
CPT/HCPCS: 36415; 70030-TC; 80307; 83690; 83735; 84443; 85025; 86592; 86705; 86803; 87340; 87806; 93005; G0480; J3411; Q0163